=== PATIENT | female | born 1965 | race Caucasian/White ===

== ENCOUNTER 2019-07-16 12:28 | Emergency (ER) | payer SELFPAY ==
[2019-07-16 12:34] VITALS: BP 133/80; PULSE 73; TEMP 98; BMI 18.1
--- NOTE | 2019-07-16 13:20 | PDOC ---
History of Present Illness - General Chief Complaint: Syncope/Near Syncope Stated Complaint: SYNCOPE Time Seen by Provider: 07/16/19 13:05 History Source: Patient - History of Present Illness Presenting Symptoms: Syncope Past History - Past Medical History Allergies/Adverse Reactions: Allergies Allergy/AdvReac Type Severity Reaction Status Date / Time iv contrast Allergy Uncoded 07/16/19 12:35 COPD: No - Psycho Social/Smoking Cessation Hx Smoking History: Never smoked Hx Alcohol Use: No Drug/Substance Use Hx: No Review of Systems - Review of Systems Constitutional: No: Fever *Physical Exam - Vital Signs Last Vital Signs Temp Pulse Resp BP Pulse Ox 98 F 73 18 133/80 100 07/16/19 12:32 07/16/19 12:32 07/16/19 12:32 07/16/19 12:32 07/16/19 12:32 ED Treatment Course - LABORATORY CBC & Chemistry Diagram: 07/16/19 13:30 07/16/19 13:30 - ADDITIONAL ORDERS Additional order review: Laboratory Results 07/16/19 13:30 Sodium 137 Potassium 3.7 Chloride 105 Carbon Dioxide 29 Anion Gap 4 L BUN 12.6 Creatinine 0.7 Est GFR (CKD-EPI)AfAm 112.26 Est GFR (CKD-EPI)NonAf 96.86 Random Glucose 100 Calcium 9.4 Total Bilirubin 0.3 AST 7 L ALT 21 Alkaline Phosphatase 90 Creatine Kinase 92 Troponin I < 0.02 Total Protein 8.4 H Albumin 4.6 07/16/19 13:30 RBC 4.77 MCV 86.2 MCHC 33.1 RDW 13.8 MPV 10.0 Neutrophils % 55.5 D Lymphocytes % 35.4 D Monocytes % 5.3 Eosinophils % 3.1 Basophils % 0.7 - RADIOLOGY Radiology Studies Ordered: Category Date Time Status HEAD CT WITHOUT CONTRAST [CT] Stat CT Scan 07/16/19 14:35 Completed Medical Decision Making - Medical Decision Making 07/16/19 13:19 54 yo F, significant history here for evaluation after 1 episode of syncope last night. Patient states while at a green party at a friend's apartment, started feeling hot with a ringing sensation in her ears and that next thing she remembers is waking up on the ground. No seizure-like activity as reported by witnesses. Has vague headache but no dizziness, nausea, vomiting, chest pain or shortness of breath. States she had similar syncope over 20 years ago with no clear etiology at that time. No history of known cardiac disease and no cardiac work-up in past see exam Syncope Witnessed No seizure No CP or dizziness prior to event Stable and well marcy here w/ unremarkable exam -ekg -labs -CTH given head injury -will discuss dispo w/ ED attg 07/16/19 15:17 EKG mostly unchanged from EKG in 2015 as d/w ED attg. Labs and CTH negative. Patient currently asymptomatic and remained stable here. Will dc w/ PMD f/u this week. Reasons to return d/w pt Discharge - Discharge Information Problems reviewed: Yes Clinical Impression/Diagnosis: Syncope Qualifiers: Syncope type: unspecified Qualified Code(s): R55 - Syncope and collapse Condition: Improved Disposition: HOME - Follow up/Referral Referrals: Carrie Downing MD [Primary Care Provider] - - Patient Discharge Instructions Patient Printed Discharge Instructions: DI for Syncope in Adults (Fainting) Additional Instructions: The cause of your fainting is unclear at this time but there is no evidence of any serious condition based on your work-up in ED Please follow-up with your PMD this week. Please return to ER for any worsening of symptoms - Post Discharge Activity
[2019-07-16 14:31] LABS: BASO % 0.7 % (0-2.0); EOS % 3.1 % (0-4.5); HEMATOCRIT 41.1 % (32.4-45.2); HEMOGLOBIN 13.6 GM/dL (10.7-15.3); LYMPH % 35.4 % (8-40); MCH 28.6 pg (25.7-33.7); MCHC 33.1 g/dl (32.0-36.0); MEAN CELL VOLUME 86.2 fl (80-96); MONO % 5.3 % (3.8-10.2); NEUT % 55.5 % (42.8-82.8); PLATELET COUNT 200 K/MM3 (134-434); RBC 4.77 M/mm3 (3.60-5.2); RDW 13.8 % (11.6-15.6); WHITE BLOOD COUNT 5.3 K/mm3 (4.0-10.0)
[2019-07-16 14:34] LABS: ALBUMIN 4.6 g/dl (3.4-5.0); ALK PHOS 90 U/L (45-117); ANION GAP 4 MMOL/L (8-16); BILIRUBIN,TOTAL 0.3 mg/dL (0.2-1); BLOOD UREA NITROGEN 12.6 mg/dL (7-18); CALCIUM 9.4 mg/dL (8.5-10.1); CHLORIDE 105 mmol/L (98-107); CO2 29 mmol/L (21-32); CREATININE 0.7 mg/dL (0.55-1.3); GLUCOSE,RANDOM 100 mg/dL (74-106); POTASSIUM 3.7 mmol/L (3.5-5.1); SGOT/AST 7 U/L (15-37); SGPT/ALT 21 U/L (13-61); SODIUM 137 mmol/L (136-145); TOT PROT 8.4 g/dl (6.4-8.2)
--- NOTE | 2019-07-17 16:00 | EKG ---
Test Reason : Blood Pressure : / mmHG Vent. Rate : 076 BPM Atrial Rate : 076 BPM P-R Int : 156 ms QRS Dur : 070 ms QT Int : 368 ms P-R-T Axes : 064 040 053 degrees QTc Int : 414 ms NORMAL SINUS RHYTHM NONSPECIFIC T WAVE ABNORMALITY ABNORMAL ECG WHEN COMPARED WITH ECG OF 10-JUL-2015 00:34, NO SIGNIFICANT CHANGE WAS FOUND Confirmed by IRINEO QUINTANILLA MD ([id number]) on 07/17/2019 4:00:09 PM Referred By: Confirmed By:IRINEO QUINTANILLA MD
== END 2019-07-16 15:00 | disposition home or self-care (01) ==
LOC: JER 12:28
DX: R55 Syncope and collapse (principal); Z91.041 Radiographic dye allergy status
CPT/HCPCS: 36415; 70450-TC; 80053; 82550; 84484; 85025; 93005; 93010; 99283-25